=== PATIENT | male | born 1945 ===

== ENCOUNTER 2017-03-06 21:25 | Observation (INO) | payer MEDICARE, OTHER ==
[~2017-03-06] VITALS: Ht 182.9 cm; Wt 87.2 kg
--- NOTE | ~2017-03-06 | DS ---
PATIENT'S NAME: RAJNI ROMERO [facility] AGE: 71 Y [address] ROOM: G6327 [facility] [address] LOCATION: GPCU ADMIT DATE: 03/06/2017 Discharge Summary DISCHARGE DATE: 03/07/2017 FAMILY PHYSICIAN: Rajni Sal MD ATTENDING PHYSICIAN: Jose Ramon Paredes PRINCIPAL DIAGNOSIS: Pulmonary embolism, right-sided small segmental. OTHER DIAGNOSES: 1. Osteoarthritis status post right knee arthroplasty. 2. Benign prostatic hypertrophy. HOSPITAL COURSE: A 71-year-old gentleman with no significant past medical history, underwent right knee arthroscopy couple of weeks ago and was sent home on aspirin for DVT prophylaxis. He presented to emergency department with the right-sided sharp chest pain, which was increasing on breathing. Initial EKG and the troponin levels were negative. D-dimers were elevated. A CAT scan of the chest was obtained with the IV contrast, which did reveal right-sided segmental small pulmonary embolism without any infarct. He was started on heparin drip for DVT protocol. He remained stable during the course of the hospitalization. He was started on dabigatran and overlap with heparin. He will be discharged home and will have follow up with Dr. Sal in 2 weeks. Since this is a provoked DVT, I would recommend at least 3-6 months of treatment with oral anticoagulation. It was discussed the adverse effects of the dabigatran in terms of bleeding. Discussed the other options including Xarelto, apixaban, as well as Coumadin. The patient chose Pradaxa to be used. He will be sent on that. We will discontinue his aspirin at this point. DISCHARGE MEDICATIONS: Include: 1. Dabigatran 150 mg p.o. b.i.d. 2. Tamsulosin 0.4 mg p.o. every day. 3. Percocet 1 tablet p.o. 3 hours p.r.n. for pain. 4. Diazepam 5 mg p.o. every 6 hours p.r.n. for muscle spasms. ACTIVITY: As tolerated. Continue physical therapy, occupational therapy. DIET: Regular diet. FOLLOWUP: Follow up with Dr. Sal in 1 week. BERKOWITZ A KHALID, MD PATIENT'S NAME: RAJNI ROMERO [facility] AGE: 71 Y [address] ROOM: G6[address] [place] [address] [facility] AD[facility] DATE: 03/06/2017 Discharge Summary DISCHARGE DATE: 03/07/2017 FAMILY PHYSICIAN: Rajni Sal MD ATTENDING PHYSICIAN: Jose Ramon Paredes/liliya /[id number] d: 03/08/17 002 t: 03/14/171955, DISCHARGE SUMMARY
--- NOTE | ~2017-03-06 | HP ---
PATIENT'S NAME: RAJNI SY [facility] AGE: 71 Y [address] ROOM: [place] [address] LOCATION: GPCU ADMIT DATE: 03/06/2017 History & Physical DISCHARGE DATE: FAMILY PHYSICIAN: Rajni Sal MD ATTENDING PHYSICIAN: Jose Ramon Paredes DATE OF SERVICE: CHIEF COMPLAINT: Pulmonary embolism. HISTORY OF PRESENTING ILLNESS: This 71-year-old, white male, presented to the emergency department this evening with chest pain which came on around 7 o'clock this evening. He describes an unusual sensation of pain and pressure in the epigastrium and left lower chest, which came on relatively suddenly. States that it initially made him short of breath and that it hurt to take deep breaths. He felt that it was "just indigestion" and tried to take an antacid, which gave no relief. Symptoms persisted and he subsequently decided to come to the emergency room for definitive evaluation and management. On his arrival here, he was hemodynamically stable and oxygenating normally on room air. Laboratory and imaging studies revealed the presence of a small pulmonary embolism. He did recently undergo a right total knee arthroplasty. This was done under the direction of Dr. Bloom. I do not have any records. He was discharged to home on regular strength aspirin as DVT prophylaxis. He has been engaging in some outpatient physical therapy, but feels that he is making good progress. He has had no significant pain or swelling in the lower leg. He denies fevers, chills, or sweats, although he did have some sweats during the episode when the discomfort came on this evening. No jorge abdominal pain. He eats and drinks normally. He stools normally and voids well with the use of Flomax and Proscar. No numbness or tingling in his extremities or any associated physical or constitutional complaints. MEDICAL ALLERGIES: Iodine contrast. ILLNESSES: 1. BPH. 2. Nephrolithiasis. 3. Osteoarthritis status post right total knee arthroplasty 3 weeks ago. CURRENT MEDICATIONS: PATIENT'S NAME: RAJNI SY [facility] AGE: 71 Y [address] ROOM: [address] [place], [place] [address] LOCATION: GPCU ADMIT DATE: 03/06/2017 History & Physical DISCHARGE DATE: FAMILY PHYSICIAN: Rajni Sal MD ATTENDING PHYSICIAN: Jose Ramon Paredes 1. Aspirin 325 mg p.o. daily. 2. Diazepam 5 mg p.o. q.6 hours p.r.n. muscle spasm. 3. Proscar 5 mg p.o. daily. 4. Flomax 0.4 mg p.o. daily. 5. Percocet 5/325 one tablet p.o. q.3 hours p.r.n. pain. FAMILY HISTORY: Significant for prostate cancer in his father. Father at the age of 80. SOCIAL HISTORY: He is . He lives here in [place]. There is no significant history of tobacco use or alcohol use. REVIEW OF SYSTEMS: As per HPI. All other organ systems reviewed and are negative. OBJECTIVE: VITAL SIGNS: Temperature 97.6, pulse 74, respirations 20, blood pressure 124/75, O2 saturation 97% on room air. GENERAL: He is very pleasant, cooperative, lying in bed, in no acute distress. SKIN: Supple, pink, warm, and dry. No obvious rashes. The wound overlying the right knee is clean, dry, and intact. The wound edges are essentially healed. There are no complicating features. HEENT: Otherwise normocephalic. Sclerae nonicteric. Pupils equal, round, and reactive to light and accommodation. Extraocular movements appear intact. Nasal turbinates normal. Oropharynx clear. Mucous membranes moist. NECK: Supple. No masses or adenopathy. No thyromegaly. No JVD. CHEST: Wall is symmetrical. HEART: Tachycardic, but regular without murmurs. LUNGS: Diminished but clear bilaterally. No wheezes or crackles are heard. ABDOMEN: Soft, nontender. Bowel sounds present. No masses or hepatosplenomegaly. and RECTAL: Not done. EXTREMITIES: Display trace pitting edema of the right lower extremity. No cyanosis. NEUROLOGICALLY: No focal deficits. LABORATORY AND X-RAY DATA: CBC showed white blood cell count 11.9, hemoglobin is 12.7, hematocrit 38.0, platelets 395. Chemistries revealed a BUN and creatinine 17 and 1.1 respectively. Sodium and potassium 141 and 3.9. Chloride and CO2 are 106 and 22. Calcium of 9.0. AST and ALT 12 and 40 respectively. Bilirubin is 0.5. Magnesium level is 2.4. Glucose 149. PT and PTT 10.0 and 26 respectively with an INR of 0.95. Cardiac enzymes revealed a troponin I of less than 0.04 PATIENT'S NAME: RAJNI SY [facility] AGE: 71 Y [address] ROOM: [facility] [place] [address] LOCATION: GPCU ADMIT DATE: 03/06/2017 History & Physical DISCHARGE DATE: FAMILY PHYSICIAN: Rajni Sal MD ATTENDING PHYSICIAN: Jose Ramon Paredes x2. ProBNP was minimally abnormal at 162. A D-dimer was elevated at 7.65. CT scan of the chest per PE protocol showed a small pulmonary embolism, final radiologic interpretation pending at the time of this dictation. ASSESSMENT/PLAN: 1. Acute pulmonary embolism. We will admit for observation. He has already been heparinized. Plan to continue with heparin for now and discuss transitioning to an oral anticoagulant. We will try to get a formal interpretation of the CT angiogram to better delineate the nature of the pulmonary embolism. At least at this point, I feel that the benefits outweigh the risks of treatment. I did discuss this at length with Mr. Sy and he voiced understanding and agreement. We discussed the possibility of warfarin versus novel anticoagulant and the potential for treatment duration of 3-6 months based on the fact that this is likely a provoked event. We will get echocardiogram in the morning and follow up on that when the results are known. Also venous Doppler ultrasounds bilaterally to surveil for active DVT. 2. Osteoarthritis of the right knee status post right total knee arthroplasty otherwise clinically stable. Plan to continue with range of motion exercises and outpatient physical therapy. 3. Benign prostatic hypertrophy. Mildly symptomatic. Plan to continue with Proscar and Flomax. 4. Deep venous thrombosis prophylaxis. We will anticoagulate as described above. We will mobilize him as he is physically able. MD TANA MENENDEZ/liliya /[id number] D: [id number] T: [id number] HISTORY & PHYSICAL
--- NOTE | ~2017-03-06 | ER ---
PATIENT'S NAME: RAJNI ROMERO [facility] AGE: 71 Y [address] ROOM: [address] [address] LOCATION: GPCU ADMIT DATE: 03/06/2017 ER/Outpatient Report DISCHARGE DATE: FAMILY PHYSICIAN: Rajni Sal MD ATTENDING PHYSICIAN: Jose Ramon Paredes CHIEF COMPLAINT: Chest pain. HISTORY OF PRESENT ILLNESS: The patient is a 71-year-old male, who comes in with anterior chest pain across his lower chest and then upper abdominal plane across his upper abdomen. He was watching TV about 2 hours prior to admission to the emergency room when the pain started. No shortness of breath. No nausea, vomiting, or diarrhea. No incontinence of stool or urine. No lightheadedness, dizziness, syncope, or near syncope. Did have some sweats on 2 occasions. No headache, eyes, ears, nose, throat, neck, or spine pain. No fall or trauma. No recent colds, coughs, flus, fever, chills, or sweats. He had a right total knee arthroplasty 3 weeks ago. No other joint or muscle problems. No skin eruptions or rash. No history of neuro changes, psych issues, endocrine problems. HOME MEDICATIONS: See attached medication list. ALLERGIES: CONTRAST DYE CAUSES HIM TO SNEEZE. SOCIAL HISTORY: Nonsmoker, nondrinker. SIGNIFICANT PAST MEDICAL HISTORY: Degenerative osteoarthritis, degenerative joint disease, benign prostatic hypertrophy. OPERATIONS: Right total knee arthroplasty. REVIEW OF SYSTEMS: All systems reviewed by me are negative with the exception of those discussed in the history of present illness. PHYSICAL EXAMINATION: VITAL SIGNS: Temperature 97.9 tympanic, pulse 90, respirations 16, blood pressure 160/125, O2 saturation on room air is 99%. PATIENT'S NAME: RAJNI ROMERO [facility] AGE: 71 Y [address] ROOM: [address] [place] [address] LOCATION: GPCU ADMIT DATE: 03/06/2017 ER/Outpatient Report DISCHARGE DATE: FAMILY PHYSICIAN: Rajni Sal MD ATTENDING PHYSICIAN: Jose Ramon Paredes HEAD: Normocephalic. No abrasion, contusion, laceration, swelling of the scalp or face. EYES: Extraocular muscles intact. PERRL. EARS: Clear TMs bilaterally. NOSE: Clear. THROAT: Clear. Mucous membranes moist. Teeth and jaw intact. NECK: No nuchal rigidity. No thyromegaly or cervical adenopathy. No tenderness. SPINE: Nontender. No deformity. LUNGS: Clear. Good air flow. No rales, rhonchi, or wheezes. HEART: Regular. Pulses are palpable. No real chest pain to palpation. ABDOMEN: Soft, nondistended. No tenderness to palpation. Good bowel tones. No organomegaly or abnormal mass palpable. No CVA tenderness. EXTREMITIES: Without peripheral edema or cyanosis. There is a little bit of swelling in the right knee, but the incision is healed well. It is not warm to the touch. Not grossly swollen. Calves are normal bilaterally. NEUROVASCULAR: Intact. SKIN: Clear. No skin eruptions or rash. LABORATORY DATA AND X-RAYS: EKG showed sinus rhythm. No acute ST elevation, ischemic change, or arrhythmia. Chest x-ray shows no acute infiltrate or changes. We will review x-ray with the radiologist. Laboratory: Amylase and lipase were normal. CMS was normal except for an elevated glucose 149, magnesium 2.4. CPK was 42. Sahub-qr-vvsn cardiac enzymes were normal. D-dimer was elevated 7.65. White count was 11,900, differential of 85 segs, 8 lymphocytes, 6 monos, hemoglobin was 12.7, hematocrit 38.0, platelet count 395,000. PTT was 26, pro-time was 10.0 with an INR 0.95. ProBNP was 162. Two-hour snvuw-nq-mczh cardiac enzymes are pending with the D-dimer being elevated, and the patient having chest pain, we did go ahead and do a CT scan of the chest with PE protocol. I did give the patient 250 mg of Solu-Medrol IV along with Benadryl 25 mg IV prior to contrast being given. CT scan showed small pulmonary embolus in right lower lobe, no other definite PE is identified. CT scan was read by Radiology, see dictated transcribed report. IMPRESSION: Chest pain, etiology uncertain. The patient does have a small right lower lung pulmonary embolus. He is 3 weeks status post right total knee arthroplasty. The patient has no shortness of breath. He is saturating well on room air. PLAN: Discussed the patient with Dr. Paredes, hospitalist. We will admit the patient PATIENT'S NAME: RAJNI ROMERO [facility] AGE: 71 Y [address] ROOM: [address] [place] [address] LOCATION: [facility] ADMIT DATE: 03/06/2017 ER/Outpatient Report DISCHARGE DATE: FAMILY PHYSICIAN: Rajni Sal MD ATTENDING PHYSICIAN: Jose Ramon Paredes to U telemetry. I did start the patient on heparin IV per PE protocol. Discussion ensued with the patient concerning my findings and recommendations, he understands. MD TREY JOE/jyotil /[id number] d: 03/07/17 0106 t: 03/07/17 1814, OUTPATIENT REPORT
--- NOTE | ~2017-03-06 | ER ---
PATIENT'S NAME: RAJNI ROMERO [facility] AGE: 71 Y [address] ROOM: [address] [place] [address] [facility] AD[facility] DATE: 03/06/2017 ER/Outpatient Report DISCHARGE DATE: 03/07/2017 FAMILY PHYSICIAN: Rajni Sal MD ATTENDING PHYSICIAN: Jose Ramon Paredes ADDENDUM: This is an addendum to previous ER dictation. Accumulated critical care time 30 minutes. MD TREY JOE/jyotil /[id number] d: 03/07/17 0025 t: 03/08/17 1815, OUTPATIENT REPORT
[2017-03-06 21:48] LABS: BASOPHIL # 0.1 K/uL (0.0-0.2); BASOPHIL % 0.4 %; EOSINOPHIL % 0.1 %; HEMOGLOBIN 12.7 g/dL (11.0-16.0); IMMATURE GRANULOCYTE # 0.1 K/uL (0.0-0.3); IMMATURE GRANULOCYTE % 0.5 %; LYMPHOCYTE % 8.4 %; MCHC 33.4 gm/dL (32.0-36.5); MCV 89.6 fl (83.0-98.0); MONOCYTE # 0.7 K/uL (0.0-1.0); MPV 8.8 fl (9.4-12.4); NEUTROPHIL % 84.6 %; NRBC % 0 /100WBC (0-0.00); PLATELET COUNT 395 K/uL (150-450); RBC 4.24 M/uL (3.50-5.50); RDW-CV 12.5 % (11.9-14.6); WBC 11.9 K/uL (4.0-11.0)
[2017-03-06 21:58] LABS: INR - (THERAPEUTIC) 0.95 (0.92-1.07); PTT 26 SECONDS (25-32)
[2017-03-06 22:07] LABS: ALBUMIN 3.6 gm/dL (3.5-5.0); ALK PHOS 115 IU/L (33-138); ALT 40 IU/L (12-78); ANION GAP 16.9 (10.0-19.0); AST 12 IU/L (10-40); BLOOD UREA NITROGEN 17 mg/dL (6-24); CHLORIDE 106 mMol/L (96-110); CO2 22 mMol/L (22-32); CPK 42 IU/L (35-332); CREATININE 1.1 mg/dL (0.6-1.3); ESTIMATED GFR (MDRD EQUATION) > 60; MAGNESIUM 2.4 mg/dL (1.3-2.6); POTASSIUM 3.9 mMol/L (3.7-5.1); SODIUM 141 mMol/L (135-145); TOTAL BILIRUBIN 0.5 mg/dL (0.0-1.5); TOTAL PROTEIN 7.2 g/dL (6.0-8.4)
[2017-03-07 00:04] LABS: CPK 36 IU/L (35-332)
[2017-03-07] MEDS ORDERED: FLOMAX0.4 MG PO (00:16)
[2017-03-07] MEDS ORDERED: ASPIRIN EC325 MG PO (00:17)
[2017-03-07] MEDS ORDERED: HYDROCODON-ACE1 EAC4 PO (00:19)
[2017-03-07] MEDS ORDERED: VALIUM5 MG PO (00:20)
[2017-03-07] MEDS ORDERED: FINASTERIDE5 MG PO (00:21)
--- NOTE | 2017-03-07 00:36 | NUR ---
PATIENT HAS BEEN RECENTLY DISCHARGED FOR A RIGHT KNEE REPLACEMENT 3 WEEKS AGO. AT AROUND [address]/06 HE BEGAN TO DEVELOP SOME CHEST PAIN THAT HE STATED WAS IN HIS LOWER CHEST TO UPPER ABDOMEN. HE THOUGHT IT WAS INDIGESTION AND TOOK SOME WINSTON SELTZER. AFTER A PEROID OF TIME HE STILL HAD SOME PAIN AND WENT TO THE ER. D-DIMER WAS 7.65, CT OF CHEST SHOWED SMALL RIGHT PULMONARY EMBOLISM. HE WAS GIVEN 4 BABY ASPIRIN AND STARTED ON HEPARIN PER PE PROTOCOL. HE ARRIVED ON THE FLOOR IN NO APPARANT DISTRESS AT 0001, DENIED ALL PAIN. HEPARIN INFUSING AT 1300 UNITS/HR. VERY COOPERATIVE AND AGREEABLE. ONLY ABNORMAL VITAL HR IN LOW 100'S TO 1-TEENS. HX: BPH, OSTEOARTHRITIS. ALLERGIES: IV CONTRAST.
--- NOTE | 2017-03-07 04:29 | NUR ---
Significant Event: PATIENT A/0 X 3, ABMULATES VERY WELL WITH STAND BY ASSIST. ALL VSS EXCEPT FOR HR IN THE LOW 100'S, AFEBRILE. HAS DENIED ALL PAIN DURING SHIFT. NO SOB OR ANY COMPLICATIONS AT ALL. HEPARIN INFUSING AT 1300 UNITS/HR, NEXT PTT-HP 0530 ALONG WITH CARDIAC ENZYMES. TTE THIS AM ALONG WITH VENOUS DOPPLERS OF BLLE. Follow up:
[2017-03-07 06:02] LABS: HEMOGLOBIN 12.7 g/dL (11.0-16.0); MCHC 33.4 gm/dL (32.0-36.5); MCV 89.8 fl (83.0-98.0); MPV 8.8 fl (9.4-12.4); PLATELET COUNT 390 K/uL (150-450); RBC 4.23 M/uL (3.50-5.50); RDW-CV 12.7 % (11.9-14.6); WBC 11.7 K/uL (4.0-11.0)
[2017-03-07 06:17] LABS: ALBUMIN 3.3 gm/dL (3.5-5.0); ANION GAP 15.5 (10.0-19.0); BLOOD UREA NITROGEN 16 mg/dL (6-24); CALCIUM 8.9 mg/dL (8.5-10.5); CHLORIDE 107 mMol/L (96-110); CO2 21 mMol/L (22-32); ESTIMATED GFR (MDRD EQUATION) > 60; PHOSPHORUS 2.3 mg/dL (2.5-4.9); POTASSIUM 4.5 mMol/L (3.7-5.1); SODIUM 139 mMol/L (135-145)
[2017-03-07 06:26] LABS: CPK 31 IU/L (35-332)
[2017-03-07 06:36] LABS: ABSOLUTE NEUTROPHIL CT (ANC) 11.2 K/uL (1.4-9.0); LYMPHOCYTE # 0.5 K/uL (0.8-4.0); LYMPHOCYTE % 4 %; SEGMENTED NEUTROPHIL # 11.2 K/uL (1.4-9.0); SEGMENTED NEUTROPHIL % 96 %
[2017-03-07 12:19] LABS: CPK 32 IU/L (35-332)
[2017-03-07] MEDS ORDERED: PRADAXA150 MG PO (12:22)
--- NOTE | 2017-03-07 16:06 | NUR ---
1500 PT DISMISSED TO HOME WITH TO NIELS. AT TIME OF DC PT IS A/O PNK WARM AND DRY, HAS DENIED PAIN THIS ENTIRE SHIFT. LUNGS CLEAR ABDOMEN SOFT AND NONTENDER WITH ACTIVE BOWEL SOUNDS. PULSES ARE STRONG HE HAS NO EDEMA. PT IS STEADY ON HIS FEET WHEN UP AND AROUND IN ROOM. DISMISSAL INSTRUCTIONS, MEDICATION, PRESCRIPTIONS, FOLLOW UP CARE AND APPOINTMENTS ALL WENT OVER WITH PT AND , BOTH VERBALIZE UNDERSTANDING. W/C TO FRONT WEST TOWER LOBBY DOORS FOR DC TO HOME
[2017-05-25] MEDS ORDERED: NEXIUM40 MG PO (11:35)
== END 2017-03-07 15:00 | disposition disaster alternative care site (69) ==
LOC: GMED 21:25 → GPCU 23:31
PROVIDERS: Emergency Medicine; ADMIT Family Medicine
DX: I26.99 Other pulmonary embolism without acute cor pulmonale (principal); M19.90 Unspecified osteoarthritis, unspecified site; N40.0 Benign prostatic hyperplasia without lower urinary tract symptoms; I82.409 Acute embolism and thrombosis of unspecified deep veins of unspecified lower extremity; N20.0 Calculus of kidney; Z96.651 Presence of right artificial knee joint; Z79.82 Long term (current) use of aspirin; Z79.899 Other long term (current) drug therapy
CPT/HCPCS: G0378; J1200; J1644; J2930; Q9967

== ENCOUNTER 2017-04-04 15:23 | Inpatient (IN) | payer MEDICARE, OTHER ==
[~2017-04-04] VITALS: Ht 182.9 cm; Wt 84.5 kg
--- NOTE | ~2017-04-04 | CON ---
PATIENT'S NAME: RAJNI ROMERO [facility] AGE: 71 Y [address] ROOM: [address] [place] [address] [place] [facility] DATE: 04/04/2017 Consultation DISCHARGE DATE: FAMILY PHYSICIAN: Rajni Sal MD ATTENDING PHYSICIAN: Jose Ramon Paredes DATE OF CONSULTATION: 04/04/2017 REFERRING PHYSICIAN: SONY CAVAZOS) [facility] REQUESTING PHYSICIAN: Dr. Paredes. REASON FOR CONSULTATION: Abdominal pain. HISTORY OF PRESENT ILLNESS: The patient is a 71-year-old white male with past medical history significant for a recent diagnosis of a PE, found 3 weeks post total knee arthroplasty. The patient initially presented on March 06, 2017, with complaint of chest pain according to the records. In talking to him today, he feels as though he had epigastric abdominal pain at that time as well. He thought it was indigestion, but had no relief with antacids. In the ER, he was found to have a PE and eventually was placed on Xarelto. After discharge over the last month, he says he has had 4-5 attacks of abdominal pain with some radiation to the back. He says the pain is epigastric or in the right upper or left upper area, and it is a sharp pain that usually lasts for several minutes to a few hours, but then goes away on its own. He says that it is usually not associated with nausea or vomiting except on this last Wednesday he did have vomiting. He says he woke up this morning around 8:30 and started to experience abdominal pain, and unlike the usual pain, this pain did not go away, so he came in for further evaluation. The patient was seen in the ER just a couple days ago for the same pain. At that time, labs were normal and an ultrasound was normal. Today in the ER, labs show significant change with elevation of bilirubin from 0.4 on April 03, 2017, to 2.5 on April 04, 2017. In addition to this, his ultrasound shows new biliary dilation. The common bile duct was previously normal and now it is showing to be around 1 cm. He did take his Xarelto this morning. He denies any fevers, chills, or sweats. No nausea or vomiting. PAST MEDICAL HISTORY: 1. Recent pulmonary embolism. 2. BPH. 3. Nephrolithiasis. PATIENT'S NAME: RAJNI ROMERO [facility] AGE: 71 Y [address] ROOM: [place] [address] [place] [facility] DATE: 04/04/2017 Consultation DISCHARGE DATE: FAMILY PHYSICIAN: Rajni Sal MD ATTENDING PHYSICIAN: Jose Ramon Paredes 4. Osteoarthritis. PAST SURGICAL HISTORY: Knee arthroplasty. SOCIAL HISTORY: Nonsmoker. No drug use. No significant alcohol use. FAMILY HISTORY: There is no family history of colon cancer or liver disease. MEDICATIONS: Reviewed, see chart for details. ALLERGIES: REVIEWED, SEE CHART FOR DETAILS. REVIEW OF SYSTEMS: 10-point review of systems negative other than mentioned in the HPI. PHYSICAL EXAMINATION: VITAL SIGNS: Temp 98.2, pulse 117, respiratory rate 13, blood pressure 126/72. GENERAL: Alert and oriented x3, in no acute distress. Pleasant and conversational. HEENT: Within normal limits. NECK: No masses. SKIN: Normal. NEURO: Cranial nerves 2-12 grossly intact. CARDIOVASCULAR: Regular rate and rhythm without murmurs, rubs, or gallops. LUNGS: Clear to auscultation bilaterally. No wheezes, rales, or rhonchi. Abdominal exam is soft, nontender. Bowel sounds are normal. EXTREMITIES: No edema. Muscle strength is normal. LABORATORY DATA: Sodium of 139, potassium 3.9, BUN of 9, creatinine of 0.9. Bilirubin of 2.5, up from 0.4 yesterday. Alkaline phosphatase of 203, up from 106 yesterday; AST of 572, up from 42; ALT of 362, up from 47. Lipase is normal at 103. White blood cell count is 10.8, hemoglobin is 13.2, platelet count is 241. INR is 1.1. IMAGING: Ultrasound of the abdomen done today: 1. Gallbladder sludge with no evidence of shadowing gallstones or an acute cholecystitis. PATIENT'S NAME: RAJNI ROMERO [facility] AGE: 71 Y [address] ROOM: [place] [address] [place] [facility] [place] DATE: 04/04/2017 Consultation DISCHARGE DATE: FAMILY PHYSICIAN: Rajni Sal MD ATTENDING PHYSICIAN: Jose Ramon Paredes 2. Progressive dilation of the common bile duct, currently measuring up to 1 cm. Of note, the bile duct was normal yesterday at 5 mm. ASSESSMENT AND PLAN: Abdominal pain: I suspect the patient's abdominal pain is most likely secondary to choledocholithiasis. He has 2 strong predictors of choledocholithiasis in that his bilirubin is elevated and his bile duct is dilated. The likelihood of choledocholithiasis is, therefore, high. He was given Xarelto today; therefore, I will not plan for ERCP tomorrow. Given the fact that he has no signs of cholangitis or pancreatitis at this time, the ERCP is not urgent or emergent. Currently, the plan will be to put him on a heparin drip and follow his labs. If his bilirubin does come down, then it would be okay to take him to the OR for lap geovani with IOC. If his bilirubin stays elevated or increases further, then we will consider an ERCP on Wednesday. Dr. Starr is on-call as of 04/05/2017, and therefore, we will make that decision tomorrow morning. J MD EUGENIA CARBAJAL/liliya /[id number] d: 04/05/17 0130 t: 05/07/17 0844, CONSULTATION REPORT
--- NOTE | ~2017-04-04 | OR ---
PATIENT'S NAME: RAJNI ROMERO [facility] AGE: 71 Y [address] ROOM: G3202 [place] [address] LOCATION: [facility] [place] ADMIT DATE: 04/04/2017 OR/Procedure Report DISCHARGE DATE: FAMILY PHYSICIAN: Rajni Sal MD ATTENDING PHYSICIAN: Jose Ramon Paredes SURGEON: Iron Harrison MD BARBER APPRENTICE: Lucio Chen PA-C DATE OF PROCEDURE: 04/08/2017 PREOPERATIVE DIAGNOSIS: Cholelithiasis with choledocholithiasis, status post endoscopic retrograde cholangiopancreatography. POSTOPERATIVE DIAGNOSIS: Cholelithiasis with choledocholithiasis, status post endoscopic retrograde cholangiopancreatography. PROCEDURE PERFORMED: Laparoscopic cholecystectomy. FINDINGS: The gallbladder was inflamed. The cystic duct was very dilated, small stones were present within the gallbladder. ESTIMATED BLOOD LOSS: Less than 50 mL. COMPLICATIONS: None. INDICATIONS: The patient is a 71-year-old male, who presented with abdominal pain. He had elevated bilirubin. He had been on Xarelto. This was taken off. He subsequently had an ERCP with stent placement. I was asked to perform cholecystectomy due to his cholelithiasis and choledocholithiasis. The risks, benefits, and alternatives were discussed with the patient. He elected to proceed. DESCRIPTION OF PROCEDURE: The patient was taken into the endoscopy suite, placed in a left lateral decubitus position, given sedation by Anesthesia, and subsequently intubated. His abdomen was prepped with ChloraPrep and sterilely draped. Local anesthetic was infiltrated just superior to the umbilicus. A transverse incision was created. The abdomen was elevated. A Veress needle was inserted. Pneumoperitoneum was induced. Following this, a 5-mm trocar was inserted followed by insertion of the camera. There was no injury from the initial trocar placement. Three more trocars were then positioned, an 11 mm epigastric and two 5 mm right subcostal ports. Skin overlying the peritoneum was first anesthetized prior to making these incisions. All 3 of these trocars were inserted under direct visualization. The gallbladder was then grasped, was elevated over the dome of the liver. The infundibulum was grasped and retracted inferiorly and laterally to expose the Calot triangle. The cystic duct and artery were dissected around circumferentially. The PATIENT'S NAME: RAJNI ROMERO [facility] AGE: 71 Y [address] ROOM: G3202 [place], [place] [address] LOCATION: [facility] [place] ADMIT DATE: 04/04/2017 OR/Procedure Report DISCHARGE DATE: FAMILY PHYSICIAN: Rajni Sal MD ATTENDING PHYSICIAN: Jose Ramon Paredes cystic duct was very dilated, but we were able to get a very large critical window. This area was inflamed making the dissection more difficult, but ultimately we had a large critical window. We placed a clip near the gallbladder, transected the cystic duct, and then placed an Endoloop around the cystic duct. This appeared secured. The cystic artery was doubly clipped and divided. The gallbladder was then removed from the liver bed using electrocautery. The posterior wall was quite friable. We did place a hole in the gallbladder, and the bile was controlled very easily. There were a few small stones that also had to be retrieved. Once the gallbladder was completely removed, it was placed in an EndoCatch bag and brought out through the epigastric port site. The liver bed was then inspected. It appeared hemostatic. The clips appeared to be in good position on the cystic artery. The Endoloop appeared secured on the cystic duct. The area was copiously irrigated. Fluid was removed. The pneumoperitoneum was released. The trocars were removed. The trocar sites appeared hemostatic. The fascia of the epigastric port site was approximated with 0 Vicryl suture followed by skin closure of all 4 port sites with 4-0 Monocryl suture. Steri-Strips and sterile dressings were placed. The patient was extubated and sent to recovery in good condition. MD ANGEL BUNN/liliya /[id number] d: 04/08/17 1338 t: 04/22/17 1121, OPERATIVE SUMMARY
--- NOTE | ~2017-04-04 | HP ---
PATIENT'S NAME: RAJNI ROMERO [facility] AGE: 71 Y [address] ROOM: [place] [address] [place]: [facility] [place] DATE: 04/04/2017 History & Physical DISCHARGE DATE: FAMILY PHYSICIAN: Rajni Sal MD ATTENDING PHYSICIAN: Jose Ramon Paredes DATE OF SERVICE: CHIEF COMPLAINT: Obstructive hyperbilirubinemia. HISTORY OF PRESENTING ILLNESS: This 71-year-old white male with recent history of small subsegmental pulmonary embolism in the setting of knee surgery came to the emergency department today with recurrent epigastric abdominal pain. He had actually presented there yesterday and was treated conservatively. He had an ultrasound and some lab work which was fairly unremarkable. He was recommended to follow up outpatient with General Surgery. Today, he experienced recurrent epigastric abdominal pain and returned to the emergency department. Repeat ultrasound demonstrated some ductal dilatation of the common bile duct to 9 to 10 mm. His bilirubin had increased to 2.5 and his liver transaminases have elevated to the 300 to 500 range. Over the course of his emergency room evaluation tonight, he also spiked a fever. He has been started on antibiotics. Currently, he reports feeling "better." He did get some morphine and reports his pain is currently 1/10 located in the epigastrium and right hand side. He denies jorge chest pain. He denies any significant shortness of breath and only minimal nausea. He does report feeling quite thirsty and requests water. He denies headache, pain or dizziness. No other abdominal pain. Stools have been regular and he did stool last today. He voids normally. Denies numbness or tingling in his extremities or any other associated constitutional complaints. PAST MEDICAL HISTORY: ALLERGIES: IODINE, CONTRAST. ILLNESSES: 1. Small subsegmental pulmonary embolism in the setting of knee surgery in January 2017. 2. Benign prostatic hypertrophy. 3. Nephrolithiasis. 4. Osteoarthritis of the right knee status post arthroplasty in January PATIENT'S NAME: RAJNI ROMERO [facility] AGE: 71 Y [address] ROOM: [place] [address] [place]: [facility] [place] DATE: 04/04/2017 History & Physical DISCHARGE DATE: FAMILY PHYSICIAN: Rajni Sal MD ATTENDING PHYSICIAN: Jose Ramon Paredes 2016. CURRENT MEDICATIONS: 1. Xarelto 20 mg p.o. daily. 2. Flomax 0.4 mg p.o. daily. 3. Multivitamin daily. 4. [place] 5/325 one tablet p.o. q.3 hours p.r.n. pain. 5. Proscar 5 mg p.o. daily. 6. Vitamin D3, 400 international unit p.o. daily. 7. Ascorbic acid 500 mg p.o. daily. FAMILY HISTORY: Significant for prostate cancer in his father. Father at the age of 80. SOCIAL HISTORY: He is and lives here in [place]. There is no significant history of tobacco or alcohol use. REVIEW OF SYSTEMS: As per HPI. All other organ systems reviewed and are negative. OBJECTIVE: VITAL SIGNS: Temperature 103.2, pulse 95, respirations 16, blood pressure 130/74. GENERAL: He is very pleasant, cooperative, lying in the bed, in no acute distress. SKIN: Supple, pink, warm, dry. No obvious rashes. HEENT: Otherwise, normocephalic. Sclerae nonicteric. Pupils equal, round, and reactive to light and accommodation. Extraocular movements appear intact. Nasal turbinates normal in appearance. Oropharynx clear. Mucous membranes are pink and moist. NECK: Supple. No masses or adenopathy. No thyromegaly. No JVD. CHEST: Chest wall is symmetrical. HEART: Regular without murmurs. LUNGS: Clear bilaterally. No wheezes or crackles heard. ABDOMEN: Soft, diffusely tender across the midepigastrium. No masses. No hepatosplenomegaly. and RECTAL: Not done. EXTREMITIES: No significant clubbing, cyanosis, or edema. NEUROLOGICAL: No focal deficits. LABORATORY AND X-RAY DATA: CBC showed a white blood cell count 10.8, hemoglobin 13.2, hematocrit 40.7, platelets 241. PATIENT'S NAME: RAJNI ROMERO [facility] AGE: 71 Y [address] ROOM: G3202 [place], [place] [address] LOCATION: [facility] [place] DATE: 04/04/2017 History & Physical DISCHARGE DATE: FAMILY PHYSICIAN: Rajni Sal MD ATTENDING PHYSICIAN: Jose Ramon Paredes Chemistries reveal BUN and creatinine 9 and 0.9 respectively. Sodium 139, potassium 3.9, chloride 104, CO2 24, calcium 8.7, AST 572, ALT 362 respectively. Bilirubin was 2.5. Glucose 119. Amylase and lipase were 24 and 103. Abdominal ultrasound showed gallbladder sludge without obvious shadowing consistent with gallstones, but progressive dilatation of common bile duct measuring 1 cm. ASSESSMENT AND PLAN: 1. Obstructive hyperbilirubinemia concerned for gallbladder sludge. We will admit to inpatient care. We will continue with some supportive cares including IV fluids and symptomatic measures with IV morphine for relief of pain and Zofran for relief of nausea. The case has been discussed with Gastroenterology and preliminarily they had discussed ERCP. This will likely need to be postponed as he is currently anticoagulated with Xarelto. We will hold the Xarelto tonight and plan to initiate heparin drip tomorrow without a bolus. We will continue the heparin until a decision can be made on ERCP. 2. Acute cholangitis based on fever. He is not septic. We will continue with Zosyn and await cultures. We will follow up on those when the results are known. Continue with supportive cares as above. 3. Pulmonary embolism. As described above this was a small subsegmental pulmonary embolism. It does not appear that venous Doppler studies were ever done to confirm the presence of a DVT. However, this did occur in the setting of knee surgery. Retrospectively, his symptoms are similar to when he presented with pulmonary embolism raising the possibility that this was an incidental finding. Favor continued therapy with anticoagulation. We will hold the Xarelto as described above and continue heparinization beginning tomorrow. 4. Benign prostatic hyperplasia minimally symptomatic and stable on Flomax and Proscar. 5. Osteoarthritis of knee status post right knee arthroplasty clinically stable and progressing. Minimally symptomatic. Encourage mobilization as he is physically able. 6. Deep venous thrombosis prophylaxis. He is going to be fully anticoagulated as described above. MD TANA MENENDEZ/liliya PATIENT'S NAME: RAJNI ROMERO [facility] AGE: 71 Y [address] ROOM: G3[address] [place], [place] [address] LOCATION: [facility] [place] DATE: 04/04/2017 History & Physical DISCHARGE DATE: FAMILY PHYSICIAN: Rajni Sal MD ATTENDING PHYSICIAN: Jose Ramon Paredes /[id number] D: [id number] T: [id number] HISTORY & PHYSICAL
--- NOTE | ~2017-04-04 | CON ---
PATIENT'S NAME: RAJNI SY [facility] AGE: 71 Y [address] ROOM: [address] [place] [id number] LOCATION: [facility] [place] ADMIT DATE: 04/04/2017 Consultation DISCHARGE DATE: FAMILY PHYSICIAN: Rajni Sal MD ATTENDING PHYSICIAN: Jose Ramon Paredes DATE OF CONSULTATION: 04/06/2017 REFERRING PHYSICIAN: SONY OLVERA (GASTRO) REASON FOR CONSULTATION: Choledocholithiasis/cholangitis. HISTORY OF PRESENT ILLNESS: Rajni Sy is a 71-year-old gentleman who underwent a total knee arthroplasty approximately one month ago. He subsequently had a pulmonary embolus and was placed on Xarelto. On WednesdayApril 03, the patient has had some epigastric pain. He presented to the emergency room where his white blood cell count was normal at 7.8, AST was 42, ALT 47, amylase 33, and lipase 127. Ultrasound showed some sludge in the gallbladder. The patient became pain free during his time in the ER, and was subsequently discharged home with plans to follow up with the general surgeon as an outpatient. On the morning of April 04, the patient developed more severe mid upper abdominal pain that radiated through to his back. He returned to the ER where his white blood cell count was 10.8. Bilirubin was up to 2.5, AST 572, and ALT 362, amylase and lipase were still normal. The ultrasound of the gallbladder showed dilated common bile duct at 10 mm. No stone was seen. The patient was admitted to [facility] by the hospitalist. Gastroenterology was consulted. They have plans to proceed with an ERCP tomorrow and has consulted general surgery for consideration of removal of the gallbladder the following day. The patient's lab work did show a bilirubin of 4.5 yesterday, but this has improved to 1.9 today. At this time, the patient denies any significant pain. No nausea or vomiting. He is hungry. The patient understands the diagnosis and the plan that has been set forth. ALLERGIES: IODINE CONTRAST MEDIA, WHICH CAUSES SNEEZING. MEDICATIONS: Medications at home include: 1. Flomax 0.4 mg p.o. daily. 2. [place] 1 tablet p.o. every 3 hours p.r.n. pain. 3. Finasteride 5 mg p.o. daily. 4. Xarelto 20 mg p.o. daily. 5. Vitamin C 500 mg p.o. daily. 6. Vitamin D3 400 units p.o. daily. PATIENT'S NAME: RAJNI SY [facility] AGE: 71 Y [address] ROOM: [address] [place] [address] LOCATION: [facility] [place] ADMIT DATE: 04/04/2017 Consultation DISCHARGE DATE: FAMILY PHYSICIAN: Rajni Sal MD ATTENDING PHYSICIAN: Jose Ramon Paredes 7. Multivitamin one tablets p.o. daily. 8. Prilosec 20 mg p.o. daily. ILLNESSES: Include: 1. Pulmonary embolus, small, right lower lobe without evidence of infarct March 06, 2017 (postoperative from total knee arthroplasty). 2. BPH. 3. History of nephrolithiasis. 4. Osteoarthritis. OPERATIONS: 1. Knee arthroplasty. 2. Open appendectomy as a child. SOCIAL HISTORY: The patient is . He is a nonsmoker. Does not consume alcohol. FAMILY HISTORY: No family history of colon cancer or liver disease. REVIEW OF SYSTEMS: The patient denies any chest pain, shortness of breath. Denies any nausea or vomiting now. Denies any prior bowel issues. Denies any abdominal pain at this time. PHYSICAL EXAM: VITAL SIGNS: Temperature is 97.7, blood pressure 134/76, pulse 83, and respirations 18. GENERAL: A healthy-appearing 71-year-old male who is sitting up in the recliner. Alert, oriented, pleasant, and cooperative in good spirits. EYES, EARS, NOSE, AND THROAT: Grossly normal. LUNGS: Clear. HEART: Regular. ABDOMEN: Soft, nontender. EXTREMITIES: The patient appears to move all extremities equally. LABORATORY DATA: Lab work today, white blood cell count 6.8, hemoglobin 11.0, hematocrit 34.0, and platelets 186. CMP: Sodium is 140, potassium 4.0, chloride 109, CO2 24, glucose 87, BUN 8, and creatinine 0.9. Total bilirubin 1.9, alkaline phosphatase 166, AST 132, and ALT 276. Abdominal ultrasound from April 04, showed a large amount of echogenic sludge identified within the gallbladder. There were no shadowing gallstones, gallbladder wall thickening, or sonographic Fuller sign identified. Pancreas was not well visualized. Common PATIENT'S NAME: RAJNI SY [facility] AGE: 71 Y [address] ROOM: [address] [place], [place] [address] LOCATION: [facility] [place] ADMIT DATE: 04/04/2017 Consultation DISCHARGE DATE: FAMILY PHYSICIAN: Rajni Sal MD ATTENDING PHYSICIAN: Jose Ramon Paredes bile duct was mildly dilated measuring up to 1 cm. No intraductal filling defects were identified. ASSESSMENT: This is a 71-year-old male with right upper quadrant pain, elevated total bilirubin with ultrasound showing sludge. Worrisome for choledocholithiasis/cholangitis with fever noted in the ER, now resolved with IV antibiotics. PLAN: Dr. Harrison reviewed over the findings with the patient and his family. He discussed the plans for gastroenterology to proceed tomorrow with an ERCP. He recommended that we proceed with removal of the gallbladder the following day, so as to prevent this from happening again in the future. The risks of the operation including risk of bleeding, infection, injury to other structures, including bowel and common bile duct, bile leak etc. were discussed. We anticipate the patient should be able to go home later in the day or the following day, with return to activity as he tolerates. Most people would be back to usual activities within about a week. We discussed advancing his diet as tolerated postoperatively. Dr. Harrison discussed potential for loose bowel movements after having the gallbladder removed. The patient's questions and concerns were addressed. He was in agreement with proceeding as planned. We will see how the ERCP goes tomorrow and tentatively plan for the laparoscopic cholecystectomy on April 08. Dr. Harrison evaluated the patient, was involved in assessment and plan, and was available for supervision. CAT RODRIGUEZ PA-C FOR MD JOANNE BUNN/liliya /[id number] d: 04/06/17 2329 t: 04/22/17 1124, CONSULTATION REPORT
--- NOTE | ~2017-04-04 | ER ---
PATIENT'S NAME: ANDREA ROMERO [facility] AGE: 71 Y [address] ROOM: [place] [address] [place] [facility] [place]: 04/04/2017 ER/Outpatient Report DISCHARGE DATE: FAMILY PHYSICIAN: Andrea Sal MD ATTENDING PHYSICIAN: Jose Ramon Paredes Admission date and time are documented on the medical record. I saw the patient at 1536 hours. CHIEF COMPLAINT: Midupper abdominal pain, radiating through to his back. HISTORY OF PRESENT ILLNESS: This patient is a 71-year-old male presented with midupper abdominal pain radiating through to his back. It started around 0830 hours this morning after eating some toast with jam. He has not had any fever, chills, or sweats at home. No chest pain or shortness of breath. No lightheadedness, dizziness, syncope, or near syncope. No headache, eyes, ears, nose, throat, neck, or spine pain. No fall or trauma. No recent coughs, colds, or flus. No diarrhea. No urinary symptoms. No joint or muscle swelling, redness, or pain. No skin eruptions or rash. No history of neuro changes, psych issues, or endocrine problems. The patient was seen yesterday and had similar pain with normal lab, abnormal gallbladder showing sludge, the gallbladder wall was not thickened, there was no pericholecystic fluid, and the common duct was normal. He came in today for reevaluation because of the intensity of the pain. His oral pain medication was not helping his pain. HOME MEDICATIONS: See attached medication list. ALLERGIES: CONTRAST DYE. SOCIAL HISTORY: Nonsmoker, nondrinker. SIGNIFICANT PAST MEDICAL HISTORY: Degenerative osteoarthritis, degenerative joint disease, benign prostatic hypertrophy, and pulmonary embolism. OPERATIONS: Total knee arthroplasty, tonsillectomy, open reduction and internal fixation of arm fracture, and appendectomy. REVIEW OF SYSTEMS: PATIENT'S NAME: ANDREA ROMERO [facility] AGE: 71 Y [address] ROOM: [address] [address] [place] [facility] [place]: 04/04/2017 ER/Outpatient Report DISCHARGE DATE: FAMILY PHYSICIAN: Andrea Sal MD ATTENDING PHYSICIAN: Jose Ramon Paredes All systems reviewed by me are negative with the exception of those discussed in history of present illness. PHYSICAL EXAMINATION: VITAL SIGNS: Temperature 98.4, tympanic, pulse 97, respirations 18, blood pressure 145/74, and O2 sat on room air is 93%. HEAD: Normocephalic. EYES, EARS, NOSE, AND THROAT: Clear. Mucous membranes moist. NECK: Negative. LUNGS: Clear. HEART: Regular. ABDOMEN: Soft. Some tenderness in the midepigastric region. No true guarding or rigidity. No rebound tenderness. No CVA tenderness. EXTREMITIES: Intact. NEUROVASCULAR: Intact. SKIN: Clear. No skin eruptions or rash. LABORATORY DATA: White count is 10,800, 82 segs, 8 lymphs, 9 monos, 1 eo, hemoglobin is 13.2 with hematocrit 40.7, and platelet count is 241,000. Pro-time was 11.8 with an INR 1.12. CMS was normal except for an elevated glucose 119, his bilirubin elevated from yesterday normal at 0.42 to today 2.5; his AST elevated from 42 to 572 today; his ALT elevated from yesterday 47 to 362 today; his alk phos went up from 106 to 203 today. Amylase and lipase were normal. We did his ultrasound of the gallbladder, which showed a dilated common duct at 9 to 10 mm. No stone was seen, but most likely there is some type of stone obstruction. See Radiology report. IMPRESSION: Midupper abdominal pain radiating through the back, secondary to suspected common duct obstruction from suspected gallbladder stone. The gallbladder itself had no thickened wall or pericholecystic fluid. His white count was normal. He is afebrile. PLAN: I did discuss this patient with Dr. Canales, group exercise manager, who thought we should admit the patient tonight and do an ERCP tomorrow morning if he is still having problems followed with cholecystectomy. I did discuss the patient with Dr. Paredes for admission to the hospital. The patient will be admitted. Discussion ensued with the patient concerning my findings and recommendations, he understands. PATIENT'S NAME: ANDREA ROMERO [facility] AGE: 71 Y [address] ROOM: [address] [address] [place] [facility] [place]: 04/04/2017 ER/Outpatient Report DISCHARGE DATE: FAMILY PHYSICIAN: Andrea Sal MD ATTENDING PHYSICIAN: Jose Ramon Paredes MD SDS/modl /[id number] d: 04/05/17 0018 t: 04/05/17 0651, OUTPATIENT REPORT
--- NOTE | ~2017-04-04 | DS ---
PATIENT'S NAME: RAJNI ROMERO [facility] AGE: 71 Y [address] ROOM: [address] [place] [id number] LOCATION: [facility] – [place] ADMIT DATE: 04/04/2017 Discharge Summary DISCHARGE DATE: 04/08/2017 FAMILY PHYSICIAN: Rajni Sal MD ATTENDING PHYSICIAN: Jose Ramon Paredes PRIMARY DIAGNOSES: 1. Choledocholithiasis. 2. Cholangitis. 3. Obstructive hyperbilirubinemia. 4. Elevated transaminases. 5. Cholelithiasis. 6. History of pulmonary embolism. PRINCIPAL PROCEDURES: Done for the patient includes ERCP by Dr. Starr and stent placement and also laparoscopic cholecystectomy by Dr. Harrison. LABORATORY DATA: WBC on admission 10.8, highest level obtained was 12.9, prior to discharge was 8.3. H and H on admission was 13.2 and 40.7, was stable throughout hospital stay, upon discharge was 10.2 with 31.6. Platelet on admission was 241, prior to discharge was 195, stable. On admission, creatinine was 1.2, prior to discharge was 0.8. Sodium on admission was 141, prior to discharge was 140, potassium on admission was 4.3, prior to discharge. 0.9. Bicarb 25, stable throughout hospital stay. Liver function tests on admission were 572, prior to discharge was 22. ALT on admission was 262, prior to discharge 114. Total bilirubin on admission was 2.5, highest level obtained was 4.5, prior to discharge was 0.7. Phosphorus on admission was 2.7. Magnesium was 2.2, was stable on admission. Antibody to H. pylori is negative. RADIOLOGY: Abdominal ultrasound. Gallbladder sludge with no evidence of cholelithiasis or an acute cholecystitis. Ultrasound, upper quadrant gallbladder with no evidence of showing gallstones or an acute progressive dilatation of the common bile duct, currently measuring up to 1 cm, there is concern for an intraductal stone. HOSPITAL COURSE: For history of present illness, please take a look at H and P, which was done by Dr. Paredes. The patient was admitted to medical-surgical unit for what appeared to be cholelithiasis also with abdominal pain. The patient was kept n.p.o. His pain was controlled with analgesics. His Xarelto was put on hold by the next day of the hospital stay the patient was started on heparin drip for his history of PE. He did also get a vascular physician consult and after the patient was evaluated by them they recommended to hold off doing an ERCP for at least 72 hours. So for the first 72 hours of his hospital stay, the patient was on heparin. His pain was controlled with PATIENT'S NAME: RAJNI ROMERO [facility] AGE: 71 Y [address] ROOM: G[address] [place] [id number] LOCATION: [facility] [place] ADMIT DATE: 04/04/2017 Discharge Summary DISCHARGE DATE: 04/08/2017 FAMILY PHYSICIAN: Rajni aSl MD ATTENDING PHYSICIAN: Jose Ramon Paredes analgesics and by the next day of his hospital stay stated felt better and essentially the patient was remained stable. He started to ambulate on the hallway and also was on clear liquid diet in preparation for his first ERCP. Third day of his hospital stay, he did get his ERCP done, procedure was well tolerated without any intraoperative or postop complication. He did get a stent placed and also had a huge diverticulum and GI felt that down the line the patient would need sphincterotomy done however; given the fact that the patient still requires Xarelto for his PE, timing for this will be followed up by the vascular physician. Following ERCP, the patient continued to remain medically stable, and by the next day, he did get a General Surgery consult and the patient had laparoscopic cholecystectomy done, which was well tolerated by the patient without any intraoperative or postop complication, and following the procedure, the patient remained clinically stable. He started to eat. He ambulated on the hallway and he was discharged home. Of note on admission, the patient was put on Zosyn from the first day of his hospital stay up until discharge, which was discontinued, and did not require oral antibiotics on discharge. DISCHARGE INSTRUCTIONS: The patient is to follow up with Dr. Starr in the next 2 weeks and also with Dr. Harrison in the next 2 weeks. MEDICATIONS ON DISCHARGE: Include; 1. Ascorbic acid 500 mg p.o. daily. 2. Vitamin D 400 units p.o. daily. 3. Finasteride 5 mg p.o. daily. 4. Multivitamin one tablet p.o. daily. 5. Flomax 0.4 mg p.o. daily. 6. Eastman 1 tab p.o. q.3 hours p.r.n. Xarelto 20 mg p.o. daily to start on April 09, 2017. MD CAROL SILVER/liliya /[id number] d: 04/09/17 0040 t: 04/22/17 1641, DISCHARGE SUMMARY
[~2017-04-04 15:23] MED LIST: ASPIRIN EC325 MG PO; FINASTERIDE5 MG PO; FLOMAX0.4 MG PO; HYDROCODON-ACE1 EAC4 PO; PRADAXA150 MG PO; VALIUM5 MG PO
[2017-04-04 16:16] LABS: BASOPHIL % 0.3 %; EOSINOPHIL # 0.1 K/uL (0.0-0.5); EOSINOPHIL % 0.6 %; HEMATOCRIT 40.7 % (37.0-53.0); HEMOGLOBIN 13.2 g/dL (11.0-16.0); IMMATURE GRANULOCYTE % 0.4 %; LYMPHOCYTE # 0.9 K/uL (0.8-4.0); MCH 28.8 pg (27.0-34.0); MCHC 32.4 gm/dL (32.0-36.5); MCV 88.7 fl (83.0-98.0); MPV 9.1 fl (9.4-12.4); NEUTROPHIL # (ANC) 8.9 K/uL (1.4-9.0); NEUTROPHIL % 81.7 %; NRBC % 0 /100WBC (0-0.00); PLATELET COUNT 241 K/uL (150-450); RBC 4.59 M/uL (3.50-5.50); RDW-CV 13.7 % (11.9-14.6); WBC 10.8 K/uL (4.0-11.0)
[2017-04-04 16:23] LABS: INR - (THERAPEUTIC) 1.12 (0.92-1.07); PROTIME 11.8 SECONDS (9.8-11.4)
[2017-04-04 16:32] LABS: ALBUMIN 3.5 gm/dL (3.5-5.0); ALK PHOS 203 IU/L (33-138); ANION GAP 14.9 (10.0-19.0); BLOOD UREA NITROGEN 9 mg/dL (6-24); CALCIUM 8.7 mg/dL (8.5-10.5); CHLORIDE 104 mMol/L (96-110); CO2 24 mMol/L (22-32); CREATININE 0.9 mg/dL (0.6-1.3); ESTIMATED GFR (MDRD EQUATION) > 60; POTASSIUM 3.9 mMol/L (3.7-5.1); SODIUM 139 mMol/L (135-145); TOTAL PROTEIN 7.1 g/dL (6.0-8.4)
[2017-04-04 16:43] LABS: ALT 362 IU/L (12-78); AST 572 IU/L (10-40); TOTAL BILIRUBIN 2.5 mg/dL (0.0-1.5)
[2017-04-04] MEDS ORDERED: XARELTO20 MG PO (19:16)
[2017-04-04] MEDS ORDERED: VITAMIN C500 MG PO (19:24)
[2017-04-04] MEDS ORDERED: VITAMIN D-40400 UNIT PO (19:25)
[2017-04-04] MEDS ORDERED: THERAGRAN-M1 TAB PO (19:26)
[2017-04-05 05:47] LABS: BASOPHIL % 0.3 %; EOSINOPHIL # 0.1 K/uL (0.0-0.5); EOSINOPHIL % 0.5 %; HEMATOCRIT 34.2 % (37.0-53.0); HEMOGLOBIN 11.1 g/dL (11.0-16.0); IMMATURE GRANULOCYTE # 0.1 K/uL (0.0-0.3); IMMATURE GRANULOCYTE % 0.5 %; LYMPHOCYTE % 7.5 %; MCHC 32.5 gm/dL (32.0-36.5); MCV 89.3 fl (83.0-98.0); MONOCYTE # 1.4 K/uL (0.0-1.0); MONOCYTE % 10.7 %; MPV 9.3 fl (9.4-12.4); NEUTROPHIL # (ANC) 10.4 K/uL (1.4-9.0); NEUTROPHIL % 80.5 %; NRBC % 0 /100WBC (0-0.00); PLATELET COUNT 216 K/uL (150-450); RBC 3.83 M/uL (3.50-5.50); RDW-CV 13.9 % (11.9-14.6); WBC 12.9 K/uL (4.0-11.0)
[2017-04-05 06:08] LABS: ALBUMIN 2.7 gm/dL (3.5-5.0); ALK PHOS 173 IU/L (33-138); ANION GAP 12.4 (10.0-19.0); AST 337 IU/L (10-40); BLOOD UREA NITROGEN 11 mg/dL (6-24); CALCIUM 8.1 mg/dL (8.5-10.5); CHLORIDE 108 mMol/L (96-110); CO2 24 mMol/L (22-32); CREATININE 0.9 mg/dL (0.6-1.3); ESTIMATED GFR (MDRD EQUATION) > 60; POTASSIUM 4.4 mMol/L (3.7-5.1); SODIUM 140 mMol/L (135-145); TOTAL PROTEIN 5.7 g/dL (6.0-8.4)
[2017-04-05 06:16] LABS: ALT 420 IU/L (12-78); TOTAL BILIRUBIN 4.5 mg/dL (0.0-1.5)
[2017-04-05] MEDS ORDERED: PRILOSEC20 MG PO (09:01)
[2017-04-06 03:05] LABS: BASOPHIL % 0.6 %; EOSINOPHIL # 0.1 K/uL (0.0-0.5); EOSINOPHIL % 1.9 %; IMMATURE GRANULOCYTE % 0.3 %; LYMPHOCYTE % 14.9 %; MCH 29.1 pg (27.0-34.0); MCHC 32.4 gm/dL (32.0-36.5); MCV 89.9 fl (83.0-98.0); MONOCYTE # 0.7 K/uL (0.0-1.0); MONOCYTE % 10.5 %; MPV 9.6 fl (9.4-12.4); NEUTROPHIL # (ANC) 4.9 K/uL (1.4-9.0); NEUTROPHIL % 71.8 %; NRBC % 0 /100WBC (0-0.00); PLATELET COUNT 186 K/uL (150-450); RBC 3.78 M/uL (3.50-5.50); WBC 6.8 K/uL (4.0-11.0)
[2017-04-06 03:20] LABS: INR - (THERAPEUTIC) 1.04 (0.92-1.07); PROTIME 10.9 SECONDS (9.8-11.4)
[2017-04-06 03:22] LABS: ALBUMIN 2.8 gm/dL (3.5-5.0); ALK PHOS 166 IU/L (33-138); ALT 276 IU/L (12-78); AST 132 IU/L (10-40); BLOOD UREA NITROGEN 8 mg/dL (6-24); CALCIUM 8.4 mg/dL (8.5-10.5); CHLORIDE 109 mMol/L (96-110); CO2 24 mMol/L (22-32); CREATININE 0.9 mg/dL (0.6-1.3); ESTIMATED GFR (MDRD EQUATION) > 60; SODIUM 140 mMol/L (135-145)
[2017-04-06 03:23] LABS: MAGNESIUM 2.2 mg/dL (1.8-2.6); PHOSPHORUS 2.4 mg/dL (2.5-4.9); TOTAL BILIRUBIN 1.9 mg/dL (0.0-1.5)
[2017-04-08 05:02] LABS: BASOPHIL % 0.1 %; HEMATOCRIT 31.6 % (37.0-53.0); HEMOGLOBIN 10.2 g/dL (11.0-16.0); IMMATURE GRANULOCYTE # 0.1 K/uL (0.0-0.3); IMMATURE GRANULOCYTE % 0.6 %; LYMPHOCYTE # 1.3 K/uL (0.8-4.0); LYMPHOCYTE % 16.1 %; MCH 28.7 pg (27.0-34.0); MCHC 32.3 gm/dL (32.0-36.5); MCV 88.8 fl (83.0-98.0); MONOCYTE # 0.9 K/uL (0.0-1.0); MONOCYTE % 10.3 %; MPV 9.5 fl (9.4-12.4); NEUTROPHIL % 72.9 %; NRBC % 0 /100WBC (0-0.00); PLATELET COUNT 195 K/uL (150-450); RBC 3.56 M/uL (3.50-5.50); RDW-CV 13.8 % (11.9-14.6); WBC 8.3 K/uL (4.0-11.0)
[2017-04-08 05:18] LABS: ALBUMIN 2.6 gm/dL (3.5-5.0); ALK PHOS 120 IU/L (33-138); ALT 114 IU/L (12-78); ANION GAP 12.9 (10.0-19.0); AST 22 IU/L (10-40); BLOOD UREA NITROGEN 9 mg/dL (6-24); CALCIUM 8.3 mg/dL (8.5-10.5); CHLORIDE 108 mMol/L (96-110); CO2 23 mMol/L (22-32); CREATININE 0.8 mg/dL (0.6-1.3); ESTIMATED GFR (MDRD EQUATION) > 60; MAGNESIUM 2.2 mg/dL (1.8-2.6); POTASSIUM 3.9 mMol/L (3.7-5.1); SODIUM 140 mMol/L (135-145); TOTAL PROTEIN 5.6 g/dL (6.0-8.4)
[2017-04-08 05:20] LABS: TOTAL BILIRUBIN 0.7 mg/dL (0.0-1.5)
[2017-05-25] MEDS ORDERED: NEXIUM40 MG PO (11:35)
== END 2017-04-08 16:05 | disposition disaster alternative care site (69) | DRG 418 ==
LOC: GMED 15:23 → GMSU 17:56
PROVIDERS: Emergency Medicine; Hospitalist; Physician Assistant; Registered Nurse; ADMIT Family Medicine
PROC: 0F798DZ Dilation of Common Bile Duct with Intraluminal Device, Via Natural or Artificial Opening Endoscopic (ICD-10-PCS; 2017-04-07)
PROC: 0FT44ZZ Resection of Gallbladder, Percutaneous Endoscopic Approach (ICD-10-PCS; principal; 2017-04-08)
DX: K80.30 Calculus of bile duct with cholangitis, unspecified, without obstruction (principal); K57.10 Diverticulosis of small intestine without perforation or abscess without bleeding; K80.20 Calculus of gallbladder without cholecystitis without obstruction; N40.0 Benign prostatic hyperplasia without lower urinary tract symptoms; Z86.711 Personal history of pulmonary embolism; Z79.01 Long term (current) use of anticoagulants
CPT/HCPCS: C1769; J1644; J1885; J2270; J2543; J7030; J7050; J7120

== ENCOUNTER → 2017-05-25 | Day surgery (SDC) | payer MEDICARE, OTHER ==
[~2017-05-25] VITALS: Ht 180.3 cm; Wt 84.5 kg
[~2017-05-25] MED LIST changes: +NEXIUM40 MG PO; +PRILOSEC20 MG PO; +THERAGRAN-M1 TAB PO; +VITAMIN C500 MG PO; +VITAMIN D-40400 UNIT PO; +XARELTO20 MG PO
== END | disposition disaster alternative care site (69) ==
LOC: GPOC 05-24 15:00 → GEND 08:28
PROC: 0W3P8ZZ Control Bleeding in Gastrointestinal Tract, Via Natural or Artificial Opening Endoscopic (ICD-10-PCS; principal; 2017-05-25)
PROC: 0DBH8ZX Excision of Cecum, Via Natural or Artificial Opening Endoscopic, Diagnostic (ICD-10-PCS; 2017-05-25)
PROC: 0DBF8ZX Excision of Right Large Intestine, Via Natural or Artificial Opening Endoscopic, Diagnostic (ICD-10-PCS; 2017-05-25)
DX: D12.0 Benign neoplasm of cecum (principal); K51.40 Inflammatory polyps of colon without complications; K63.1 Perforation of intestine (nontraumatic); K31.89 Other diseases of stomach and duodenum; K57.30 Diverticulosis of large intestine without perforation or abscess without bleeding; K64.4 Residual hemorrhoidal skin tags; D50.0 Iron deficiency anemia secondary to blood loss (chronic); Z79.01 Long term (current) use of anticoagulants; Z87.891 Personal history of nicotine dependence; Z79.899 Other long term (current) drug therapy
CPT/HCPCS: J2001; J7030

== ENCOUNTER → 2017-07-06 | Outpatient (CLI) | payer MEDICARE, OTHER | LOC: LFPA 09:42 | DX: R10.13 Epigastric pain (principal) ==